=== PATIENT | female | born 1970 | race Two or more races ===

== ENCOUNTER 2019-05-12 08:32 | Emergency (ER) | payer OTHER ==
[~2019-05-12] VITALS: Ht 162.6 cm; Wt 83.5 kg
[~2019-05-12 08:32] MED LIST: FOLIC ACID0.4 MG PO
[2019-05-12] MEDS ORDERED: NAPROXEN500 MG PO (15:15)
[2019-05-12] MEDS ORDERED: SKELAXIN800 MG PO (15:15)
== END 2019-05-12 16:18 | disposition home or self-care (01) ==
LOC: ER 08:32
DX: R07.89 Other chest pain (principal); M94.0 Chondrocostal junction syndrome [Tietze]

== ENCOUNTER → 2019-08-06 | Emergency (ER) | payer OTHER ==
[~2019-08-06] VITALS: Ht 162.6 cm; Wt 83.9 kg
[~2019-08-06] MED LIST changes: +NAPROXEN500 MG PO; +SKELAXIN800 MG PO
== END | disposition home or self-care (01) ==
LOC: ER 22:24
DX: H60.8X2 Other otitis externa, left ear (principal)

== ENCOUNTER 2020-09-15 10:43 | Emergency (ER) | payer OTHER ==
[~2020-09-15] VITALS: Ht 162.6 cm; Wt 77.6 kg
[2020-09-15] MEDS ORDERED: PROTONIX40 M1 (11:15)
== END 2020-09-15 14:14 | disposition home or self-care (01) ==
LOC: ER 10:43
DX: M54.2 Cervicalgia (principal); M62.838 Other muscle spasm; R53.81 Other malaise; F41.8 Other specified anxiety disorders